=== PATIENT | female | born 1965 | race Caucasian/White ===

== ENCOUNTER 2025-04-05 08:30 | Outpatient (CLI) | payer BC, SELFPAY | END 2025-04-05 08:31 | disposition home or self-care (01) | LOC: AMB 04-09 18:27 | PROVIDERS: Visit Provider Internal Medicine | DX: R42 Dizziness and giddiness (principal); R10.9 Unspecified abdominal pain | CPT/HCPCS: A0425; A0433 ==

== ENCOUNTER 2025-04-05 09:10 | Emergency (ER) | payer BC, SELFPAY ==
[2025-04-05 09:15] VITALS: BP 119/71; PULSE 80; RESP 16; TEMP 36.4; O2SAT 100; BMI 20.7
--- NOTE | 2025-04-05 09:34 | ED_ITS ---
HPI - Dizziness General Chief Complaint: Dizziness/Vertigo Stated Complaint: Vertigo Time Seen by Provider: 04/05/25 09:23 History of Present Illness HPI Narrative: Patient is a 59-year-old woman with only a history of hyperlipidemia treated with a statin. She woke this morning at 5:00 a.m. with severe dizziness. The dizziness involves the whole room rotating. She does reasonably well while at rest but is having significant vertigo with head movement. She has had no fevers no chills no stiff neck. No other focal neurologic signs or symptoms. She has had no similar symptoms previously. She is otherwise in her typical state of health. Related Data Home Medications ?Medication ?Instructions ?Recorded ?Confirmed alendronate 04/05/25 aspirin 81 mg tablet,delayed 81 mg PO DAILY 04/05/25 1 06/05/24 release (Adult Aspirin Regimen) atorvastatin 40 mg tablet 40 mg PO DAILY 04/05/2501/20 Allergies Allergy/AdvReac Type Severity Reaction Status Date / Time No Known Drug Allergies Allergy Verified 04/05/25 09:21 Review of Systems Status of ROS: Reports: 10 or more systems reviewed and unremarkable except as noted in History and below Exam Narrative: Exam Narrative: EXAM GENERAL: Patient appears comfortable and well. EYES: No scleral icterus. ENT: Tympanic membranes and oropharynx normal. THYROID: no thyroid nodules or thyromegaly. LYMPH: No supraclavicular or cervical lymphadenopathy. SKIN: Visible skin seen during exam normal or with benign process only. EXT: No dependent lower extremity pedal edema. HEART: Regular rate and rhythm with no murmurs, rubs, or gallops. LUNGS: Clear to auscultation bilaterally with no crackles or wheezes. ABD: Soft, non tender, non distended. PSYCH: Good eye contact, speech is not pressured. Neurologic cranial nerves 2-12 grossly intact no focal defects. Const: Vital Signs, click to edit/add: Vital Signs - 24 hr 04/05/25 09:15 Temperature 97.6 F Pulse Rate [Pulse Oximeter] 80 Respiratory Rate 16 Blood Pressure [Ri ght Upper Arm] 119/71 Pulse Oximetry 100 Oxygen Delivery Me thod Room Air Course Course ED Course: Patient appears to have benign positional vertigo. I did send off comprehensive metabolic panel CBC and EKG. Patient received droperidol and Zofran in the rig. Vital Signs Vital signs: Initial Vital Signs Temperature 97.6 F 04/05/25 09:15 Temperature Source Temporal Artery Scan 04/05/25 09:15 Pulse Rate 80 04/05/25 09:15 Respiratory Rate 16 04/05/25 09:15 Blood Pressure 119/71 04/05/25 09:15 Blood Pressure Mean 87 04/05/25 09:15 Blood Pressure Position Supine 04/05/25 09:15 Pulse Oximetry 100 04/05/25 09:15 Oxygen Delivery Method Room Air 04/05/25 09:15 Vital Signs Temperature 97.6 F 04/05/25 09:15 Pulse Rate 80 04/05/25 09:15 Respiratory Rate 16 04/05/25 09:15 Blood Pressure 119/71 04/05/25 09:15 Pulse Oximetry 100 04/05/25 09:15 Oxygen Delivery Method Room Air 04/05/25 09:15 Temperature 97.6 F 04/05/25 09:15 Pulse Rate 80 04/05/25 09:15 Respiratory Rate 16 04/05/25 09:15 Blood Pressure 119/71 04/05/25 09:15 Pulse Oximetry 100 04/05/25 09:15 Oxygen Delivery Method Room Air 04/05/25 09:15 MDM - Dizziness MDM Narrative Medical decision making narrative: Patient is a 59-year-old woman who has the abrupt onset of positional vertigo this morning. She is otherwise healthy in her labs look reasonable. She has an unremarkable exam with the exception of a positive Apley maneuver. I did have Physical therapy come to the bedside they were kind enough to perform the Wai maneuver twice. She became very dizzy both times but now is somewhat better. I do think that she can be discharged home with Ativan and Zofran. I do not think meclizine would be helpful. She is traveling from [place] and will return this weekend. I did recommend follow-up with her primary care next week. No driving or using any machinery. Lab Data Labs: Lab Results 04/05/25 Range/Units 09:45 WBC 3.04 L (4.50-11.00) K/uL RBC 4.23 (4.00-5.20) m/uL Hgb 12.3 (12.0-16.0) gm/dL Hct 38.0 (33.0-51.0) % MCV 90 (80-100) fL MCH 29 (26-34) pg MCHC 32 (32-36) gm/dL RDW Coeff of [place]lee 12.5 (11.5-15.5) % Plt Count 143 (140-440) K/uL Neut % (Auto) 58.5 (42.0-72.0) % Lymph % (Auto) 30.9 (20-44) % [place] % (Auto) 8.9 (0.0-11.0) % Eos % (Auto) 1.0 (0.0-7.0) % Baso % (Auto) 0.7 (0.0-3.0) % Neut # (Auto) 1.80 (1.7-7.0) K/uL Lymph # (Auto) 0.90 (0.90-2.90) K/uL [place] # (Auto) 0.30 (0.00-0.90) K/UL Eos # (Auto) 0.00 (0.00-0.50) K/uL Baso # (Auto) 0.00 (0.00-0.30) K/uL Abs Immat Gran (auto) 0.00 (0.00-0.30) K/uL Imm/Tot Granulo (auto) 0.0 % Sodium 138 (135-149) mmol/L Potassium 4.1 (3.6-5.1) mmol/L Chloride 104 (96-114) mmol/L Carbon Dioxide 24 (20-32) mmol/L Anion Gap 10 (7-15) mEq/L BUN 18 (7-30) mg/dL Creatinine 0.7 (0.5-1.5) mg/dL Estimated Creat Clear 70.13 Estimated GFR 101 ml/min Glucose 101 (60-115) mg/dL Calcium 8.3 L (8.4-10.6) mg/dL Total Bilirubin 0.5 (0.1-1.5) mg/dL AST 26 (12-35) U/L ALT 30 (4-35) U/L Alkaline Phosphatase 85 (40-150) U/L Total Protein 6.8 (6.0-8.3) g/dL Albumin 3.9 (3.3-5.0) g/dL Discharge Plan Discharge Clinical Impression: Benign paroxysmal positional vertigo Patient Disposition: Home, Self-Care Condition: Stable Instructions: Benign Paroxysmal Positional Vertigo (ED) Additional Instructions: Exercises as discussed by Physical therapy. Ativan as needed for dizziness Zofran as needed for nausea Follow-up with your doctor next week. Activity Level: No Restrictions Discharge Diet: Regular Prescriptions: No Action atorvastatin 40 mg tablet 40 mg PO DAILY alendronate aspirin [Adult Aspirin Regimen] 81 mg tablet,delayed release (DR/EC) 81 mg PO DAILY Follow Up/Referrals: Provider,Not a Local [Primary Care Provider, Family Practice] Stand Alone Forms: Local [employer] Info Instructions
--- OUTSIDE RECORDS SUMMARY | 2025-04-05 09:49 | XMS_ITS | Clinical Summary ---
Author Organization [facility] Address [address] [place] [address] Phone Care Team Providers Care Stem Setter Name Role Phone Unavailable Primary Care Provider Unavailabl e Social History Tobacco Use Types Packs/Day Years Used Date Smoking Tobacco: Never Assessed Comments Unknown Sex and Gender Information Value Date Recorded Sex Assigned at Not on file Legal Sex Female 5:45 PM EDT Gender Identity Not on file Sexual Orientation Not on file Plan of Treatment Health Maintenance Due Date Last Done Comments Breast Cancer Screening 1965 Colorectal Cancer Screening: Colonoscopy 1965 DTaP,Tdap,and Td Vaccines (1 - Tdap) 08/08/1986 Hepatitis B Vaccines (1 of 3 - 19+ 3-dose series) 08/08/1986 Cervical Cancer Screening: P ap Smear 08/08/1988 Pneumococcal Vaccine: 50+ Ye ars (1 of 1 - PCV) 08/08/2017 Zoster Vaccines (1 of 2) 08/08/2017 HIV Screening 07/04/2019 Hepatitis C Screening 07/04/2019 Social Influencers of Health Screening 07/04/2019 Depression Screening 05/29/2024 COVID-19 Vaccine (1 - 2023-2 5 season) 2025 Influenza Vaccine (#1) 2025 RSV Immunization Adult Patie nts (1 - 1-dose 75+ series) 08/08/2042 HIB Vaccines Aged Out No longer eligi ble based on patient's age to complete this topic HPV Vaccines Aged Out No longer eligi ble based on patient's age to complete this topic Hepatitis A Vaccines Aged Out No long er eligible based on patient's age to complete this topic IPV Vaccines Aged Out No longer eligi ble based on patient's age to complete this topic MMR Vaccines Aged Out No longer eligi ble based on patient's age to complete this topic Meningococcal ACWY Vaccine Aged Out N o longer eligible based on patient's age to complete this topic Meningococcal B Vaccine Aged Out No l onger eligible based on patient's age to complete this topic RSV Immunization Patients Un casey 20 months Aged Out No longer eligible b ased on patient's age to complete this topic Varicella Vaccines Aged Out No longer eligible based on patient's age to complete this topic Insurance [facility] on file
--- OUTSIDE RECORDS SUMMARY | 2025-04-05 09:49 | XMS_ITS | Data Portability ---
Author Organization [facility], [facility] Main Office Address [address] [place] [address] Care Team Providers Care Hybrid Car Mechanic Name Role Phone DAVE ERNANDEZ Primary Care Provider Assessment No assessment recorded. Plan of Treatment Reminders Order Date Submit Date Provider Last Modified By Organization Details Last Modified Time Details Appointments CONTACT LENS 2024 01:00P M Magdaleno Meredith MD Not available Not available Not available Lab None recorded . Referral None recorded . Procedures None recorded . Surgeries None recorded . Imaging None recorded . Medication Orders None recorded . Patient TargetsNo targets recorded. Patient InstructionsNo instructions recorded. Reason for Referral None Reported. Problems Name Problem SNOMED Code Status Onset Date Resolution Date Notes Provider Name and Address Organization Details Recorded Time Hyperlipidemia 49888199 Active 2017 Charo hsu, [facility] 8 11:06:55 Hypercholestero lemia 22866076 Active 2021 Ama hsu [facility] 2 13:37:07 Notes:elevated prolactin lev el Problem Notes None recorded. Procedures Surgical History Date Name Laterality Status Provider Name and Address Organization Details Recorded Time 11/17/19 18 [facility] [place] [address] [facility] [address], [place], [address], [facility] 11/16/2017 14:04:21 Imaging Results None recorded. Procedure Notes None recorded. Medical Equipment None Reported. Allergies No known drug allergies Medications Name Sig Start Date Stop Date Status Note LastModified by Organization Details LastModified Time amoxicillin 500 mg capsule 08/26 completed Not Available Not Available Not Available atorvastati n 40 mg tablet TAKE 1 TABLET BY MOUTH EVERY DAY active Not Available Not Available No t Available prednisone 10 mg tablet 11/16 completed Not Available Not Available Not Available ibuprofen 800 mg tablet 11/16 completed Not Available Not Available Not Available tramadol 37.5 mg-acetamin ophen 325 mg tablet 11/16 completed Not Available Not Available Not Available tretinoin 0.025 % topical cream PLEASE SEE ATTACHED FOR DETAILED DIRECTION S active Not Available Not Available No t Available ondansetron HCl 8 mg tablet 11/16 completed Not Available Not Available Not Available meloxicam 15 mg tablet TAKE 1 TABLET BY MOUTH EVERY DAY active Not Available Not Available No t Available ondansetron HCl 4 mg tablet 11/16 completed Not Available Not Available Not Available alendronate 70 mg tablet TAKE 1 TABLET BY MOUTH ONCE PER WEEK.TAKE WITH WATER 30 MINUTES BEFORE BREAKFAST active Not Available Not Available No t Available fluorouraci l 5 % topical cream BRUCE QHS TO RIGHT CHEEK FOR 4 WEEKS 08/26 completed Not Available Not Available Not Available tramadol 50 mg tablet 11/16 completed Not Available Not Available Not Available triamcinolo ne acetonide 0.1 % topical cream BRUCE BID PRN TO HAND ECZEMA 08/26 completed Not Available Not Available Not Available methocarbam ol 750 mg tablet 11/16 completed Not Available Not Available Not Available simvastatin 20 mg tablet TAKE 1 TABLET BY MOUTH EVERY EVENING active Not Available Not Available No t Available gabapentin 100 mg capsule 11/16 completed Not Available Not Available Not Available ibuprofen 600 mg tablet 11/16 completed Not Available Not Available Not Available estradiol 0.01% (0.1 mg/gram) vaginal cream APPLY 0.5GM APPLICATO RFUL VAGINALLY EVERY DAY FOR 5 DAYS BEGINING 10 DAYS PRIOR TO PAP 03/13 completed Not Available Not Available Not Available methylpredn isolone 4 mg tablets in a dose pack 11/16 completed Not Available Not Available Not Available hydrocortis one 2.5 % topical ointment 11/16 completed Not Available Not Available Not Available ketoconazol e 2 % topical cream APPLY TWICE DAILY TO THE AFFECTED AREAS ON THE FEET AND IN BETWEEN THE TOES NEEDED FOR FLARES active Not Available Not Available No t Available fluticasone propionate 50 mcg/actuati on nasal spray,suspe nsion 08/26 completed Not Available Not Available Not Available diazepam 5 mg tablet 08/26 completed Not Available Not Available Not Available cyclobenzap rine 5 mg tablet 11/16 completed Not Available Not Available Not Available June06/17 (21) 1 mg-20 mcg tablet TAKE 1 TABLET BY MOUTH EVERY DAY 08/26 completed Not Available Not Available Not Available Vitals Date Recorded Heart rate Systolic And Diastolic Provider Name and Address Organization Details Last Updated DateTime 12/05/2018 70 /min 110/69 mm[Hg] Ama Maciel [facility] 12/05/2018 11:02:02 Social History Question Answer Notes LastModified by [employer] Details LastModified Time Tobacco Smoking Status Never Smoker Not Available [facility] 03/31/2020 03:11:20 Which Illicit Or Recreational Drugs Have You Used? None [id number] Information not available 03/31/2020 What Was The Date Of Your Most Recent Tobacco Screening? 04/08/2024 [email or web address] Information not available 04/08/2024 Sex: Unknown Functional Status Question Answer Note LastModified by [email or web address] Details LastModified Time What is your level of alcohol consumption? Occasional [id number] Information not available 03/31/2020 Mental Status None recorded. Family History Relationship Description Onset Age of this Age Resolved Age Notes LastModified by Organization Details LastModified Time Mother Glaucoma [email or web address] Not availa ble 11/16/2017 11:07:34 Father Heart disease Not available 10/28 11:07:56 Father Kidney disease Not available 10/28 11:08:04 Medical History Condition Response Coronary Artery Disease N Thyroid Disease N Blood disorders N Depression N Lung Disease N Diabetic Eye Disease N Amblyopia N Multiple Sclerosis N Meningitis N Genitourinary Disease N Gastrointestinal Disease N Seasonal Allergies N Diabetes N Anxiety Disorder N Arthritis N Head Injury/Concussion N Eye Trauma N Double Vision N Cancer N Ocular trauma N Stroke N Sleep Apnea N High Cholesterol Y Neurologic Disorder N Liver Disease N Psychiatric/Mental Health Condition N Heart Disease N Headaches N Hypertension N Flomax Use Past or Present N Gynecological HistoryNo gynecological history recorded. Obstetrics History GPAL:G 0 P 0 0 0 0 Immunizations Vaccine Type Date Status Note Provider Nam e and Address Organization Details Recorded Time influenza, unspecified formulation 02/26/2017 completed Charo Kaufman [facility] 11/16/2017 10:41:29 Past Encounters Encounter ID Performer Location Encounter Start Date Encounter Closed Date Diagnosis/Indication Diagnosis SNOMED-CT Code Diagnosis ICD10 Code Diagnosis IMO Codes Diagnosis Note [id number] Magdaleno Meredith MD [facility] Main Office [address] [address] 11/16/2017 10:20:50 11/16/2017 13:34:26 Myopia 13751576 H52.13 Trial of toric contacts performed, patient prefers current contact lenses with OTC readers for near vision. New Mrx and CL Rx given to the patient. Return PRN difficulty with new prescripti on. 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 Recommend laser retinopexy today. R/B/A reviewed with the patient, who elects to proceed (see procedure note for details). RD precaution s reviewed. Return in 1-2 weeks for post-opera tive evaluation , sooner PRN. Subjective visual disturbance 53240443 H53.10 Blurry vision, bilateral. Secondary to refractive error and presbyopia . New MRx given, as above. Return PRN difficulty with new MRx. Bilateral age-related nuclear cataracts [id number] 68242 H25.13 Not visually significan t, monitor for now. Return as needed for worsening glare, difficulty driving at night, difficulty with activities of daily living, halos around bright light, or blurry vision, as this may indicate cataract progressio n. [id number] Magdaleno Meredith MD [facility] Main Office [address] [address] 11/22/2017 13:42:07 11/22/2017 15:08:26 Bilateral age-related nuclear cataracts [id number] 27549 H25.13 Not visually significan t, monitor for now. Return as needed for worsening glare, difficulty driving at night, difficulty with activities of daily living, halos around bright light, or blurry vision, as this may indicate cataract progressio n. Horseshoe retinal tear without detachment 289673295 H33.311 Doing well 1 week s/p laser retinopexy for retinal HST's at 1:30 position. Tears surrounded by LR x 360 degrees without extension of SRF. No new breaks by scleral depression x [address] juan s reviewed with the patient. Return in 3-4 weeks for repeat DFE in the operative eye, sooner PRN new eye concerns or complaints . Myopia 98063172 H52.13 Continue use of current lenses and contacts. Return PRN difficulty with new prescripti on. [id number] Magdaleno Meredith MD [facility] Main Office [address] [facility] [address] [place] [address] 12/14/2017 09:12:04 12/14/2017 10:02:13 Horseshoe retinal tear without detachment 294191828 H33.311 Doing well 1 month s/p laser retinopexy for retinal HST's at 2:30 position. Tears surrounded by LR x 360 degrees without extension of SRF. No new breaks by scleral depression x [address] juan s reviewed with the patient. Return in 1 year for repeat evaluation , sooner PRN. Bilateral age-related nuclear cataracts 0213731436 01313 H25.13 Not visually significan t, monitor for now. Return as needed for worsening glare, difficulty driving at night, difficulty with activities of daily living, halos around bright light, or blurry vision, as this may indicate cataract progressio n. Myopia 57253128 H52.13 Continue use of current lenses and contacts. Return PRN difficulty with new prescripti on. Return for trial of multifocal contact lenses when samples are available. [id number] Magdaleno Meredith MD [facility] Main Office [address] [facility] [address] [place] [address] 01/03/2018 10:46:56 01/03/2018 11:36:25 Horseshoe retinal tear without detachment 086809048 H33.311 Doing well 2 months s/p laser retinopexy for retinal HST's at 2:30 position. Tears surrounded by LR x 360 degrees without extension of SRF. No new breaks by scleral depression x 360 degrees at last dilated exam (11/2017). RD precaution s reviewed with the patient. Return in 1 year as scheduled for repeat evaluation , sooner PRN. Bilateral age-related nuclear cataracts 0202274860 H25.13 Not visually significan t, monitor for now. Return as needed for worsening glare, difficulty driving at night, difficulty with activities of daily living, halos around bright light, or blurry vision, as this may indicate cataract progressio n. Myopia 26552299 H52.13 Trial of multifocal lenses performed today. Excellent distance and near vision with appropriat e movement on slit lamp examinatio n. Trial lenses given to the patient. Recommend trial of lenses outside of the office for 2-3 weeks. Call the office if interested in placing order for CL's. Contact the office for any difficulty with new contact lens prescripti on. Do not sleep in contact lenses. [id number] Magdaleno Meredith MD [facility] Main Office [address] [facility],[address] [place] [address] 02/12/2018 10:12:57 02/12/2018 11:33:48 Myopia 20266833 H52.13 Trial of alternate multifocal lenses performed today. Improvemen t in vision and movement of contact lens with DT1 lenses OU. Excellent distance and near vision with -4.50 medium add OD and -5.00 medium add OS (20/20 at distance, J2 to J1+ at near). Trial lenses given to the patient. Recommend trial of lenses outside of the office for 1 week. Call the office if interested in placing order for CL's. Contact the office for any difficulty with new contact lens prescripti on. Do not sleep in contact lenses. Horseshoe retinal tear without detachment 669769337 H33.311 Doing well 2 months s/p laser retinopexy for retinal HST's at 2:30 position. Tears surrounded by LR x 360 degrees without extension of SRF. No new breaks by scleral depression x 360 degrees at last dilated exam (11/2017). RD precaution s reviewed with the patient. Return in 1 year as scheduled for repeat evaluation , sooner PRN. Bilateral age-related nuclear cataracts 7383006889 H25.13 Not visually significan t, monitor for now. Return as needed for worsening glare, difficulty driving at night, difficulty with activities of daily living, halos around bright light, or blurry vision, as this may indicate cataract progressio n. [id number] Magdaleno Meredith MD [facility] Main Office [address] [address] 12/05/2018 10:12:54 12/05/2018 11:35:39 Myopia 52555983 H52.13 Vision excellent with new MRx. Patient most comfortabl e in current Proclear CooperVisi on lenses. Vision 20/20 with current prescripti on and updated prescripti on taking -0.25 diopters of over-refra ction into account. Trial of new MRx and contact lens perscripti on. Contact the office PRN difficulty with new prescripti on. Horseshoe retinal tear without detachment 385488111 H33.311 Doing well s/p laser retinopexy for retinal HST's at 2:30 position. Tears surrounded by LR x 360 degrees without extension of SRF. No new breaks. RD precaution s reviewed with the patient. Return in 1 year as scheduled for repeat evaluation , sooner PRN. Bilateral age-related nuclear cataracts [id number] 07933 H25.13 Not visually significan t, monitor for now. Return as needed for worsening glare, difficulty driving at night, difficulty with activities of daily living, halos around bright light, or blurry vision, as this may indicate cataract progressio n. [id number] Magdaleno Meredith MD [facility] Main Office [address] [address] 08/26/2020 11:50:44 08/26/2020 12:59:27 Bilateral age-related nuclear cataracts [id number] 70040 H25.13 Stable from previous visit. Not visually significan t, monitor for now. Return as needed for worsening glare, difficulty driving at night, difficulty with activities of daily living, halos around bright light, or blurry vision, as this may indicate cataract progressio n. Horseshoe retinal tear without detachment 176007293 H33.311 History of retinopexy for consecutiv e retinal HST's at 2:30 position. Tears surrounded by LR x 360 degrees without extension of SRF. No new breaks x [address] precaution s reviewed with the patient. Return in 1 year as scheduled for repeat evaluation , sooner PRN. Myopia 87514111 H52.13 Vision excellent with current MRx. Doing well with current CL's (Proclear CooperVisi on lenses). Vision 20/20 with current CL Rx, confirmed with CL evaluation at slit lamp today (07/2020). MRx performed today (07/2020), stable to current prescripti on with 20/20 vision. Updated MRx given to the patient today. RV 1 year for repeat CL exam and MRx. Return sooner PRN difficulty with near and/or distance vision. [id number] Magdaleno Meredith MD [facility] Main Office [address] [address] 03/09/2022 13:15:22 03/09/2022 14:00:08 Bilateral age-related nuclear cataracts 4335397389 20681 H25.13 Stable from previous visit. Not visually significan t, monitor for now. Return as needed for worsening glare, difficulty driving at night, difficulty with activities of daily living, halos around bright light, or blurry vision, as this may indicate cataract progressio n. Horseshoe retinal tear without detachment 465722401 H33.311 History of retinopexy for consecutiv e retinal HST's at 2:30 position. Tears surrounded by LR x 360 degrees without extension of SRF. No new breaks x [address] precaution s reviewed with the patient. Return in 1 year as scheduled for repeat evaluation , sooner PRN. Myopia 01630393 H52.13 Vision excellent with current MRx. Doing well with current CL's (Proclear CooperVisi on lenses). Vision 20/20 with current CL Rx, confirmed with CL evaluation at slit lamp today (02/2022). MRx performed today (02/2022), stable to current prescripti on with 20/20 vision. Updated MRx given to the patient today (02/2022). RV 1 year for repeat CL exam and MRx. Return sooner PRN difficulty with near and/or distance vision. Tear film insufficiency of bilateral eyes 0015878562 62700 H04.123 Recommend use of artificial tears 3-4 times daily as needed for dry eye symptoms. [id number] Magdaleno Meredith MD [facility] Main Office [address] [address] 03/13/2023 13:05:20 03/13/2023 14:36:53 Bilateral age-related nuclear cataracts [id number] 62926 H25.13 Stable from previous visit. Not visually significan t, monitor for now. Return as needed for worsening glare, difficulty driving at night, difficulty with activities of daily living, halos around bright light, or blurry vision, as this may indicate cataract progressio n. Horseshoe retinal tear without detachment 821287615 H33.311 History of retinopexy for consecutiv e retinal HST's at 2:30 position. Tears surrounded by LR x 360 degrees without extension of SRF. No new breaks x [address] precaution s reviewed with the patient. Return in 1 year as scheduled for repeat evaluation , sooner PRN. Myopia 22716484 H52.13 Vision excellent with current MRx. Doing well with current CL's (Proclear CooperVisi on lenses). Vision 20/20 with current CL Rx, confirmed with CL evaluation at slit lamp today (02/2023). MRx performed today (02/2023), stable to current prescripti on with 20/20 vision. Updated MRx given to the patient today (02/2023). RV 1 year for repeat CL exam and MRx. Return sooner PRN difficulty with near and/or distance vision. Tear film insufficiency of bilateral eyes 8122027903 22007 H04.123 Recommend use of artificial tears 3-4 times daily as needed for dry eye symptoms. [id number] Magdaleno Meredith MD [facility] Main Office [address] [facility],[address] [place] [address] 04/08/2024 13:07:49 04/08/2024 15:55:30 Bilateral age-related nuclear cataracts 9130569441 31421 H25.13 Stable from previous visit. Not visually significan t, monitor for now. Return as needed for worsening glare, difficulty driving at night, difficulty with activities of daily living, halos around bright light, or blurry vision, as this may indicate cataract progressio n. Horseshoe retinal tear without detachment 120274249 H33.311 History of retinopexy for consecutiv e retinal HST's at 2:30 position. Tears surrounded by LR x 360 degrees without extension of SRF. No new breaks x [address] precaution s reviewed with the patient. Return in 1 year as scheduled for repeat evaluation , sooner PRN. Myopia 95946688 H52.13 Significan t improvemen t with updated MRx (03/2024). Updated CL Rx trial performed, significan t improvemen t OD with change to toric lens. Patient elects trial of [employer] Proclear toric lenses (ordered for the patient today), given difficulty with multiple toric lenses in clinic today. Return PRN difficulty with trial lenses or updated MRx. RV 1 year for repeat CL exam and MRx. Return sooner PRN difficulty with near and/or distance vision. Tear film insufficiency of bilateral eyes [id number] 63471 H04.123 Recommend use of artificial tears 3-4 times daily as needed for dry eye symptoms. Health Concerns Section Related Observation LastModified by Organization Detai ls LastModified Time None Recorded Concern Status LastModified by Organization Details LastModified Time None Recorded Advance Directives Directive None Recorded Payers Insurance Date Sequence Insurance Name Policy Number Policy Martínez Covered Member ID Martínez Member ID Guarantor Name 04/08/2024 1 [facility] (PPO[facility] [id number] Aleksandar Patton [id number] Janelle Patton 03/13/2023 [employer] Janelle Patton [id number] Janelle Patton Notes Date Note Type Note Provider Name a ga Address Organization Details Recorded Time 12/05/2018 text/html tech notes (ama): patient doing well with current contact lenses, wears the coop[employer]ision proclear monthly contact lenses, is happy with comfort and vision of contacts. has tried daily lenses in the past and wasnt very happy [place] [address] [address], [place], [address], [facility] 12/05/2018 11:50:10 08/26/2020 text/html Tech(MS) Pt is here today for yearly check-up for CL. Pt states vision maybe [place] [address] [facility] [address], [place], [address], [facility] 08/27/2020 20:11:39 03/09/2022 text/html tech (ama) patient is here for a contact lens exam and annual today- no having any current issues with [place] [address] [facility] [address], [place], [address], [facility] 03/09/2022 13:56:25 03/13/2023 text/html tech (ama) patient is here for a cl exam and annual today- patient states having more difficulties while on the computer with OU getting tired quicker- on the computer for 4 to 7 hours per [place]. [place] [address] [address], [place], [address], [facility] 03/13/2023 14:32:43 04/08/2024 text/html Tech (Umang) - Pt here for CL exam along with f/ufor horseshoe tear without detachment OD, pt states they noticed OU has been squinting more for NVA and DVA tasks, and has been wearing OTC +2.00 and for computer +1.75 and has been relying on these more often. Ordered proclear Toric for OD sample and Proclear OS for sample. Pt taking ACUVUE OASYS with HydraClear plus Toric OD home as trial and ACUVUE OASYS with HydraClear plus OS [place]. [place] [address] [address], [place], [address], [facility] 04/08/2024 16:03:48 OBGyn Episode No OBEpisode recorded.
--- OUTSIDE RECORDS SUMMARY | 2025-04-05 09:49 | XMS_ITS | Patient Health Record ---
Author Organization [facility] Address [address] [place] [address] Care Team Providers Care Movie Operator Name Role Phone Joycelyn Gonzales Primary Care Provider PASQUALE Espino Unavailable [phone] Reason For Referral No Information Medications Medication SIG (Take, Route, Fr equency, Duration) Notes Start Date End Date Status Prednisone Active Simvastatin Active Active Probiotic Active Vitamin Mixture Acti ve Immunizations Vaccine Route Administration Date Status Comme nts zzPPA Unknown 02/10/2017 Pending zzPPA Unknown 03/08/2017 Pending zzPPA Unknown 04/05/2017 Pending zzPPA Unknown 05/10/2017 Pending zzPPA Unknown 06/23/2017 Pending zzPPA Unknown 09/29/2017 Pending zzPPA Unknown 11/08/2017 Pending zzPPA Unknown 02/16/2018 Pending Social History Tobacco Use: Social History Observation Description Date Details (start date - stop date) Never Smoker NA - NA Smoking Question Answer Notes Are you a: never smoked Alcohol Screen Question Answer Notes Did you have a drink contain ing alcohol in the past year? Yes How often did you have a dri nk containing alcohol in the past year? Monthly or less (1 point) How many drinks did you have on a typical day when you were drinking in the past year? 1 or 2 drinks (0 point) How often did you have 6 or more drinks on one occasion in the past year? Never (0 point) Points 1 Interpretation Negative Problems Problem Type SNOMED Code ICD Code Onset Dates Problem Status W/U Status Risk Notes Problem Radiculopathy due to lumbar intervertebral disc disorder (523466352579237) Intervertebral disc disorders with radiculopathy, lumbar region (M51.16) Active confirmed Plan Of Treatment No Information Insurance Providers Payer Name Payer Address Payer Phone Subscriber Number Group Number Insured Name Patient Relationship to Insured Coverage Start Date Coverage End Date [facility] [address] [place] [phone] [id number] Aleksandar Patton Spouse - patient is the spouse of the insured 7 Medical (General) History Medical History History ICD Code High Cholesterol Endometriosis Elevated prolactin level Surgical History Surgery Date(Month/Year) Laparoscopy for Endometriosis 2004 IVF 2006 Hospitalization History Reason Date(Month/Year) See Surgical History
--- OUTSIDE RECORDS SUMMARY | 2025-04-05 09:50 | XMS_ITS | Clinical Summary ---
Author Organization [facility] Address [address] [place] [address] Care Team Providers Care Car Checker Name Role Phone Unavailable Primary Care Provider Unavailabl e Social History Tobacco Use Types Packs/Day Years Used Date Smoking Tobacco: Never Assessed Comments Unknown Sex and Gender Information Value Date Recorded Sex Assigned at Not on file Legal Sex Female 1:26 PM EDT Gender Identity Not on file Sexual Orientation Not on file Plan of Treatment Not on file
--- OUTSIDE RECORDS SUMMARY | 2025-04-05 09:50 | XMS_ITS | Patient Health Record ---
Author Organization [facility] Address [address] [place] [address] Care Team Providers Care Planer Hand Name Role Phone AWAIS SEO, DAVE Primary Care Provider Unavailab Rian Shepard Unavailable [phone] Reason For Referral No Information Plan Of Treatment No Information Insurance Providers Payer Name Payer Address Payer Phone Subscriber Number Group Number Insured Name Patient Relationship to Insured Coverage Start Date Coverage End Date [facility] [address] [place] [phone] [id number] ALANIS JUARES Spouse - patient is the spouse of the insured 2
--- OUTSIDE RECORDS SUMMARY | 2025-04-05 09:50 | XMS_ITS | Clinical Summary ---
Author Organization [facility] ([facility] 12/17/2023) ([facility]) Address [address] [place] [address] Care Team Providers Care Care Program Resident Name Role Phone Joycelyn Gonzales MD Primary Care Provider [phone] Allergies No known active allergies Medications Multiple Vitamin (MULTI-VITAMIN) PO Tab take by mouth. Active Probiotic Product (PROBIOTIC DAILY PO) take by mouth. Active simvastatin (Zocor) 20 MG PO Tab TAKE ONE TABLET BY MOUTH EVERY EVENING 07/01/2019 Active Cholecalciferol (vitamin D) 25 MCG (1000 UT) PO Tab take 1 Tablet by mouth once daily. Active Alendronate Sodium 70 MG PO Tab take 1 Tablet by mouth once weekly. 12 Tablet 1 11/02/2023 Active Active Problems Problem Noted Date Diagnosed Date Postmenopausal osteoporosis 05/01/2023 Hyperprolactinemia 05/01/2023 Exercise counseling 05/01/2023 Dense breasts 08/06/2015 Fibrocystic breast changes of both breasts 08/05 Immunizations Immunization Administration Dates Next Due Covid-19 Vaccine (Myreks) 09/09/2020,08/19/2020 Family History Medical History Relation Name Comments Cancer - Breast Maternal Great Grandmother Cancer - Other Paternal Grandfather LIVER - 60'S Cancer - Colon Neg Hx Cancer - Ovarian Neg Hx Cancer - Prostate Neg Hx Relation Name Status Comments Maternal Great Grandmother Other M GR GMO Alive Paternal Grandfather Social History Tobacco Use Types Packs/Day Years Used Date Smoking Tobacco: Never Tobacco Cessation:Counseling Given: Not Answered Alcohol Use Standard Drinks/Week Comments No 0 (1 standard drink = 0.6 oz pur e alcohol) 0-1 drinks per month Comments No Sex and Gender Information Value Date Recorded Sex Assigned at Not on file Legal Sex Female 6:41 PM EST Gender Identity Not on file Sexual Orientation Not on file Last Filed Vital Signs Vital Sign Reading Time Taken Comments Blood Pressure 109/67 11/02/2023 9:31 AM EDT Pulse 73 11/02/2023 9:31 AM EDT Temperature - - Respiratory Rate - - Oxygen Saturation - - Inhaled Oxygen Concentration - - Weight 50.3 kg (111 lb) 11/02/2023 9:31 AM EDT Height 157.9 cm (5' 2.17) 11/02/2023 9:31 AM ED T Body Mass Index 20.19 11/02/2023 9:31 AM EDT Plan of Treatment Health Maintenance Due Date Last Done Comments CT Colonography 1967 Colonoscopy 1967 Colorectal Cancer Screening 1967 FIT-DNA 1967 FIT/FOBT 1967 HPV Every 5 Years 1967 SCREENING: HEPATITIS C 1967 Sigmoidoscopy 1967 SCREENING: DEPRESSION 1979 SCREENING:HIV 08/08/1982 HEALTH MAINTENANCE EXAM (ADULT) 08/08/1986 VACCINE: HEPATITIS B (1 of 3 - 19+ 3-dose series) 08/08/1986 VACCINE: TETANUS,DIPHTHERIA BOOSTER (TD BOOSTER) EVERY 10 YEARS 08/08/1986 VACCINE: TETANUS,DIPHTHERIA,PERTUSSIS (TDAP) FIRST DOSE ADULT 08/08/1986 VACCINE: ZOSTER (SHINGRIX) (#1) 08/08/2017 Mammogram 11/26/2024 11/27/2023, 10/28, 11/22/2021, Additional history exists VACCINE: INFLUENZA (#1) 2024 03/04/20 23, 03/02/2022, 03/25/2021, Additional history exists VACCINE: COVID-19 ( season) 2025 04/16/2021, 09/09/2020, 08/19/2020 Cervical Cancer Screening 06/20/2025 Pap Smear 06/20/2025 06/20/2022, 04/28, 04/09/2019, Additional history exists VACCINE: HEPATITIS A Aged Out 07/10/2018, 04/14/20 17 No longer eligible based on patient's age to complete this topic Pneumococcal Vaccine: Pediatrics (0 to 5 Years) and At-Risk Patients (6 to 64 Years) Aged Out No longer eligible based on patient's age to complete this topic Vaccines: HIB Aged Out No longer elig ible based on patient's age to complete this topic Vaccines: IPV Aged Out No longer elig ible based on patient's age to complete this topic Vaccines: Meningococcal B Aged Out No longer eligible based on patient's age to complete this topic Vaccines: Meningococcal Aged Out No l onger eligible based on patient's age to complete this topic Vaccines: Rotavirus Aged Out No longe r eligible based on patient's age to complete this topic Procedures Procedure Name Priority Date/Time Associated Diagnosis Comments MAMMOGRAPHY SCREENING BILATERAL W SCREENING TOMOSYNTHESIS Routine 11/27/2023 11:15 AM EDT Encounter for screening mammogram for malignant neoplasm of breast CYTOLOGY, PAP TEST (THIN PREP) Routine 06/20/2022 12:00 AM EST Satisfactory cervical smear but lacking transformation zone from Last 3 Months or Most Recently Relevant to Health Maintenance Results * MAMMOGRAPHY SCREENING BILATERAL W SCREENING TOMOSYNTHESIS (11/27/2023 11:15 AM EDT) Anatomical Region Laterality Modality Breast Bilateral Radiographic Suzan ging 12/05/2023 10:1 7 AM EDT Narrative 12/05/2023 10:20 AM EDT Procedure: MAMMOGRAPHY SCREENING BILATERAL W SCREENING TOMOSYNTHESIS History: Asymptomatic. Previous benign right breast biopsy. Maternal great grandmother with breast cancer. Comparison: 11/23/2022 study and exams dating back to 11/19/2019. Findings: 2-D and tomosynthesis images of each breast were obtained. The breasts are composed of heterogeneously dense tissue, which may obscure small masses. No suspicious masses, calcifications or areas of distortion are seen. Bilateral mammogram is compared to prior studies and is unchanged. Given the patient's breast density, the patient may benefit from supplemental screening. The patient is eligible for automated whole breast screening ultrasound (ABUS). This can be scheduled at your request. Impression: Bilateral mammogram is negative for malignancy. Annual screening mammography is recommended. Procedure Note Darian Dong MD - 12/05/2023 Procedure: MAMMOGRAPHY SCREENING BILATERAL W SCREENING TOMOSYNTHESIS History: Asymptomatic. Previous benign right breast biopsy. Maternalgreat grandmother with breast cancer. Comparison: 11/23/2022 study and exams dating back to 11/19/2019. Findings: 2-D and tomosynthesis images of each breast were obtained. The breasts are composed of heterogeneously dense tissue, which mayobscure small masses. No suspicious masses, calcifications or areas of distortionare seen. Bilateral mammogram is compared to prior studies and is unchanged. Given the patient's breast density, the patient may benefit fromsupplemental screening. The patient is eligible for automated whole breast screening ultrasound (ABUS). This can be scheduled at your request. Impression: Bilateral mammogram is negative for malignancy. Annualscreening mammography is recommended. Jean Mena RN CONCRETE FINISHING MACHINE OPERATOR-C [facility] IM MAMMO ORDERABLES Final Result * Cytology, Pap Test (Thin Prep) (06/20/2022 12:00 AM EST) CASE REPORT Gynecologic Cytology Case: [id number] Authorizing Provider: Belen Rae MD Collected: 06/20/2022 12:00 AM Ordering Location: [facility] - Received: 06/21/2022 03:20 PM [place] First Screen: Edda Loredo Specimen: Pap Test - ThinPrep, Cervix/Endocervix 06/30/2022 10:36 AM EST [facility] (CLIA#: [id number]) SPECIMEN ADEQUACY: Satisfactory for evaluation: endocervical/trans formation zone component present. 06/30/2022 10:36 AM EST [facility] (CLIA#: [id number]) INTERPRETATI ON: NEGATIVE FOR INTRAEPITHELIAL LESION OR MALIGNANCY 06/30/2022 10:36 AM EST [facility] (CLIA#: [id number]) at 1036 EST SPECIMEN CHARACTERIST ICS: A. Cervix/Endocervix. Pap sample received in ThinPrep Preservcyt vial. Slides: 1 ThinPrep - Pap Slide, Imaged x1 Specimen processed successfully by automated bit sander device. [facility], [place], [place] This specimen was prepared and screened at [facility], [address] [place] [id number] 06/30/2022 10:36 AM [facility] (CLIA#: [id number]) LMP/MENSTRUA L STATUS: 05/202106/30/2022 10:36 AM [facility] (CLIA#: [id number]) HPV TEST REQUEST: HPV if Abnormal 06/30/2022 10:36 AM [facility] (CLIA#: [id number]) DX CATEGORY: NILM 06/30/2022 10:36 AM [facility] (CLIA#: [id number]) . The pap test is a screening test with limited sensitivity for the detection of cervical cancers and cancer precursors and is subject to both false negative and false positive results. This report should be interpreted in conjunction with patient history, clinical evaluation, and HPV test results. 06/30/2022 10:36 AM [facility] (CLIA#: [id number]) Pap ENDOCERVICAL STRUCTURE / Unknown 06/20/2022 06/21/2022 3:20 PM EST us Belen Rae MD LAB CYTOLOGY ORDERABLES Jenny napier Result [facility] (CLIA#: [id number]) [facility] [address] [place] [address] from Last 3 Months or Most Recently Relevant to Health Maintenance Care Teams Care Program Resident Relationship Specialty Start Date End Date Joycelyn Gonzales MD [address] [place] [phone] PCP - General 06/03/06
--- OUTSIDE RECORDS SUMMARY | 2025-04-05 09:50 | XMS_ITS | Referral Summary ---
Author Organization [employer] ([facility] 12/17/2023) ([employer]) Address [address] [place] [address] Care Team Providers Care Theatrical Variety Agent Name Role Phone Joycelyn Gonzales MD Primary Care Provider [phone] Allergies No known active allergies Medications Multiple [...] Immunization Administration Dates Next Due Covid-19 Vaccine (Pfizer) 09/09/2020,08/19/2020 Social History Tobacco Use Types Packs/Day Years [...] 11/02/2023 9:31 AM EDT Plan of Treatment Not on file Procedures Procedure Name Priority Date/Time Associated Diagnosis [...] Annualscreening mammography is recommended. Jean Mena RN SEASONER HAND-C [facility] IM MAMMO ORDERABLES Final Result * Cytology, Pap Test (Thin Prep) (06/20/2022 12:00 AM EST) CASE REPORT Gynecologic Cytology Case: [id number] Authorizing Provider: Belen Rae MD Collected: 06/20/2022 12:00 AM Ordering Location: [facility] - Received: 06/21/2022 03:20 PM [place] First Screen: Edda Loredo Specimen: Pap Test - ThinPrep, Cervix/Endocervix 06/30/2022 10:[address] [facility] (CLIA#: [id number]) SPECIMEN ADEQUACY: Satisfactory for evaluation: endocervical/trans formation zone component present. 06/30/2022 10:[address] [facility] (CLIA#: [id number]) INTERPRETATI ON: NEGATIVE FOR INTRAEPITHELIAL LESION OR MALIGNANCY 06/30/2022 10:[address] [facility] (CLIA#: [id number]) at 1036 EST SPECIMEN CHARACTERIST ICS: A. Cervix/Endocervix. Pap sample received in ThinPrep Preservcyt vial. Slides: 1 ThinPrep - Pap Slide, Imaged x1 Specimen processed successfully by automated seamstress fitter device. [facility], [place], [place] This specimen was prepared and screened at [facility], [address] [place] [address] 06/30/2022 10:[address] [facility] (CLIA#: [id number]) LMP/MENSTRUA L STATUS: 05/202106/30/2022 10:[address] [facility] (CLIA#: [id number]) HPV TEST REQUEST: HPV if Abnormal 06/30/2022 10:[address] [facility] (CLIA#: [id number]) DX CATEGORY: NILM 06/30/2022 10:[address] [facility] (CLIA#: [id number]) . The pap test is a screening test with limited sensitivity for the detection of cervical cancers and cancer precursors and is subject to both false negative and false positive results. This report should be interpreted in conjunction with patient history, clinical evaluation, and HPV test results. 06/30/2022 10:[address] [facility] (CLIA#: [id number]) Pap ENDOCERVICAL STRUCTURE / Unknown 06/20/2022 06/21/2022 3:20 PM EST us Belen Rae MD LAB CYTOLOGY ORDERABLES Jenny napier Result [facility] (CLIA#: [id number]) [address] [place] [address] from Last 3 Months or Most Recently Relevant to Health Maintenance Care Teams Theatrical Variety Agent Relationship Specialty Start Date End Date Joycelyn Gonzales MD [address] [place] [address] PCP - General 06/03/06
[2025-04-05 09:52] LABS: Hematocrit* 38.0 % (33.0-51.0); Hemoglobin* 12.3 gm/dL (12.0-16.0); Immature Granulocytes Abs Auto 0.00 K/uL (0.00-0.30); Immature Granulocytes Pct Auto 0.0 %; Mean Corpuscular HGB Conc 32 gm/dL (32-36); Mean Corpuscular Hemoglobin 29 pg (26-34); Mean Corpuscular Volume 90 fL (80-100); RDW Coefficient of Variation % 12.5 % (11.5-15.5); Red Blood Count* 4.23 m/uL (4.00-5.20); White Blood Count* 3.04 K/uL (4.50-11.00)
[2025-04-05 10:01] LABS: Lymphocytes Absolute Auto 0.90 K/uL (0.90-2.90); Slide Review Reflex No
[2025-04-05 10:04] LABS: Albumin* 3.9 g/dL (3.3-5.0); Chloride* 104 mmol/L (96-114); Sodium* 138 mmol/L (135-149)
[2025-04-05 10:05] LABS: Potassium* 4.1 mmol/L (3.6-5.1)
[2025-04-05 10:07] LABS: Alanine Aminotransferase* 30 U/L (4-35); Alkaline Phosphatase* 85 U/L (40-150); Anion Gap 10 mEq/L (7-15); Aspartate Amino Transferase* 26 U/L (12-35); Bilirubin Total* 0.5 mg/dL (0.1-1.5); Blood Urea Nitrogen* 18 mg/dL (7-30); Carbon Dioxide* 24 mmol/L (20-32); Creatinine* 0.7 mg/dL (0.5-1.5); Est. Creatinine Clearance* 70.13; Estimated Glomerular Filt Rate 101 ml/min; Total Protein* 6.8 g/dL (6.0-8.3)
[2025-04-05 10:08] LABS: Calcium* 8.3 mg/dL (8.4-10.6); Glucose* 101 mg/dL (60-115)
[2025-04-05 11:08] VITALS: BP 126/79; PULSE 80; RESP 18; O2SAT 99
== END 2025-04-05 11:49 | disposition home or self-care (01) ==
PROVIDERS: Emergency Provider Internal Medicine
DX: H81.13 Benign paroxysmal vertigo, bilateral (principal)
CPT/HCPCS: 36415; 80053; 85025; 93005; 97112; 97161; 99283; 99284